=== PATIENT | male | born 1985 | race Caucasian/White ===

== ENCOUNTER 2017-12-19 12:36 | Emergency (ER) | payer BC ==
[~2017-12-19] VITALS: Ht 177.8 cm; Wt 77.0 kg
[2017-12-19 12:41] VITALS: TEMP 36.6; Ht 177.8 cm; Wt 77.0 kg
[2017-12-19] MEDS ORDERED: PROPARACAINE HCL 0.5% OP SOLN 15 ML BTL ONE (12:49)
--- NOTE | 2017-12-19 12:54 | EMERGENCY ROOM VISIT NOTE ---
History Report prepared by Isabelle: Jass Hearn Under the Supervision of: Dr. César Jenkins M.D. First contact with patient: 12:47 Chief Complaint: EYE ASSESSMENT Stated Complaint: EYE PAIN,SWELLING History of Present Illness The patient is a 32 year old male who presents to the Emergency Room with complaints of constant burning right eye pain after his bull terrier pounced on his face this morning. The patient notes that both his and his dogs immunizations are up to date. No purulent discharge from either eye. Patient reports mild irritation in his right eye. No floaters or loss of vision. The patient denies that his dog injured any other part of his body and denies any other medical problems. Source of History: patient Onset: earlier today. Position: eye (right) Quality: burning Timing: constant Note: Denies: Any other injuries from the dog or any other medical problems Review of Systems See HPI for pertinent positives and negatives. A total of ten systems were reviewed and were otherwise negative. Family History Patient reports no known family medical history. Social History Smoking Status: Never Smoker Current/Historical Medications Scheduled Erythromycin Opth (Erythromycin Opth), 1 APPLN MS QID Allergies Coded Allergies: No Known Allergies (Unverified , 12/19/17) Physical Exam Vital Signs Date Time Temp Pulse Resp B/P (MAP) Pulse Ox O2 Delivery O2 Flow Rate FiO2 12/19/17 13:17 75 14 120/74 97 12/19/17 12:41 36.6 80 16 125/72 97 Physical Exam Physical Exam GENERAL: He is oriented to person, place, and time. He appears well-developed and well-nourished. He does not appear distressed. ____ HENT: Exam performed. Head: Normocephalic and atraumatic. Right Ear: External ear normal. No mastoid tenderness. Left Ear: External ear normal. No mastoid tenderness. Mouth/Throat: The oropharynx is clear and moist. No trismus in the jaw. No dental abscesses or uvula swelling. No oropharyngeal exudate or tonsillar abscesses. ____ EYES: Conjunctivae and EOM are normal. Pupils are equal, round, and reactive to light. Right eye exhibits no discharge. Left eye exhibits no discharge. No scleral icterus. No foreign body bilaterally. No hyphema or hypopyon bilaterally.____ FUNDUSCOPIC: No AV nicking or papilledema bilaterally. After anesthetizing right eye with proparacaine. The patient's eye was examined with fluorescence which showed corneal abrasion Crista negative NECK: Normal range of motion. Neck supple. No JVD present. No spinous process tenderness present. No carotid bruit present. No rigidity. No tracheal deviation and normal range of motion present. No Brudzinski's sign and no Kernig 's sign noted. ____ CV: Normal rate, regular rhythm, normal heart sounds and intact distal pulses. There is no peripheral edema. Palpable radial pulses bue. ____ PULM/CHEST: Effort normal and breath sounds normal. No respiratory distress. No stridor. He has no wheezes. He has no rales. Chest Wall: He exhibits no tenderness. ____ ABD: The abdomen is soft. Bowel sounds are normal. He has no distension. No mass is present. There is no tenderness. There is no rebound, no guarding, no Camargo's sign and no tenderness at McBurney's point. Rovsig negative MUSC/SKEL: Normal range of motion. There is no peripheral edema, tenderness or deformity. LYMPH: No cervical adenopathy. ____ NEURO: He is alert and oriented to person, place, and time. He has normal strength. No cranial nerve deficit or sensory deficit. Coordination and gait normal. GCS eye subscore is 4. GCS verbal subscore is 5. GCS motor subscore is 6. Cerebellar tests wnl. ____ SKIN: Skin is warm and dry. He is not diaphoretic. ____ PSYCH: He has a normal mood and affect. His behavior is normal. Judgment and thought content normal. ____ Medical Decision & Procedures Medications Administered Medications (Trade) Dose Ordered Sig/Mikala Route Start Time Stop Time Status Last Admin Dose Admin Proparacaine HCl (Alcaine 0.5% Oph Soln) 225 drops STK-MED ONCE .ROUTE 12/19/17 12:49 12/19/17 12:50 DC 12/19/17 12:50 225 DROPS ED Course 1247: The patient was evaluated in room B8. A complete history and physical exam was performed. Patient has corneal abrasion, discharge with erythromycin ointment. Patient's tetanus up-to-date. DISCHARGE - Plan of care discussed with patient and questions answered. The patient was given both verbal and printed discharge instructions. The patient verbalized understanding and ability to comply. The patient is to seek outpatient follow up as noted in the discharge instructions. The patient verbalized understanding and ability to comply. The patient is discharged in stable condition. The patient was instructed to return for worsening symptoms. Medical Decision The patient was evaluated in room B8. A complete history and physical exam was performed. Patient has corneal abrasion, discharge with erythromycin ointment. Patient's tetanus up-to-date. DISCHARGE - Plan of care discussed with patient and questions answered. The patient was given both verbal and printed discharge instructions. The patient verbalized understanding and ability to comply. The patient is to seek outpatient follow up as noted in the discharge instructions. The patient verbalized understanding and ability to comply. The patient is discharged in stable condition. The patient was instructed to return for worsening symptoms. Medication Reconcilliation Current Medication List: was personally reviewed by me Blood Pressure Screening Patient's blood pressure: Normal blood pressure Impression Primary Impression: Corneal abrasion Scribe Attestation The scribe's documentation has been prepared under my direction and personally reviewed by me in its entirety. I confirm that the note above accurately reflects all work, treatment, procedures, and medical decision making performed by me. The chart was completed utilizing [employer] Speech voice recognition software. Grammatical errors, random word insertions, pronoun errors, and incomplete sentences are an occasional consequence of this system due to software limitations, ambient noise, and hardware issues. Any formal questions or concerns about the content, text, or information contained within the body of this dictation should be directly addressed to the physician for clarification. Departure Information Dispostion Home / Self-Care Prescriptions Erythromycin Opth (ERYTHROMYCIN OPTH) 12 Appln/3.5 Gm Oint 1 APPLN MS QID for 7 Days, #1 % 1 Refill Prov: César Jenkins M.D. 12/19/17 Referrals No Doctor, Assigned (PCP) Forms HOME CARE DOCUMENTATION FORM, IMPORTANT VISIT INFORMATION, WORK / SCHOOL INSTRUCTIONS Patient Instructions Corneal Injury, My [facility] Problem Qualifiers Primary Impression: Corneal abrasion Encounter type: initial encounter Laterality: right Qualified Codes: S05.01XA - Injury of conjunctiva and corneal abrasion without foreign body, right eye, initial encounter
[2017-12-19] MEDS ORDERED: ERYOPO MS (13:16)
[2017-12-19 13:17] VITALS: BP 120/74; PULSE 75; O2SAT 97
== END 2017-12-19 13:20 | disposition home or self-care (01) ==
LOC: C.EDB 12:40
DX: S05.01XA Injury of conjunctiva and corneal abrasion without foreign body, right eye, initial encounter (principal); H57.11 Ocular pain, right eye; W55.89XA Other contact with other mammals, initial encounter